=== PATIENT | female | born 1990 | race Caucasian/White ===

== ENCOUNTER → 2020-04-07 10:34 | Outpatient (CLI) | payer BC, SELFPAY | PROVIDERS: PCP Family Medicine; Visit Provider Obstetrics & Gynecology | DX: Z03.818 Encounter for observation for suspected exposure to other biological agents ruled out (principal) | CPT/HCPCS: 87635; U0003 ==

== ENCOUNTER 2020-04-12 07:05 | Inpatient (IN) | payer BC, SELFPAY ==
[2020-04-12] VITALS (21 sets, daily range): BP systolic 116–142; BP diastolic 58–84; PULSE 60–96; RESP 16; TEMP 36.9–37.3; O2SAT 99; BMI 31.5
[2020-04-12] MEDS: Lactated Ringers 1,000 ML 50 ML IV (07:50)
[2020-04-12 08:08] LABS: Absolute Lymphocyte Count 1.25 X10^3/uL (0.83-4.51); Basophil# 0.07 X10^3/uL; Basophil% 0.8 % (0-1); Eosinophils% 2.4 % (0-5); Hematocrit 37.8 % (37-47); Hemoglobin 12.8 g/dL (12.0-15.0); Lymphocyte # 1.25 X10^3/ul (4.0); Lymphocyte % 15.1 % (19-41); Mean Corp Hgb Conc 33.9 g/dL (32-36); Mean Corpuscular Hgb 30.4 pg (27.0-32.0); Mean Corpuscular Volume 89.8 fL (81-99); Mean Platelet Vol. 11.1 fl (6.2-12.0); Monocyte# 0.66 X10^3/uL; NRBC Flagged by Analyzer 0 % (0-5); Neutrophil # 6.03 X10^3/uL (2.7-7.7); Platelet Count 200 K/mm3 (150-450); RBC Distribution Width CV 12.9 % (11.6-14.6); RBC Distribution Width SD 42.4 fl (35.1-43.9); Red Blood Count 4.21 M/mm3 (4.2-5.4); White Blood Count 8.3 K/mm3 (4.4-11.0)
--- NOTE | 2020-04-12 08:45 | PCM.HP.OB ---
- Problem List (1) 41 weeks gestation of Status: Acute (2) Encounter for induction of labor Status: Acute History Date of Admission: 04/12/20 Final WILDA: 04/05/20 Gestational age: 41 Weeks and 0 Days History of this : This is a 29 year-old, G3 P 1103 at 41 weeks gestational age for induction of labor. Denies any loss of fluid or vaginal bleeding. Positive movement and positive contractions. uncomplicated. Allergies bee pollen Allergy (Verified 04/12/20 07:45) Hives blue dye Allergy (Verified 04/12/20 07:46) Hives NSAIDS (Non-Steroidal Anti-Inflamma Allergy (Verified 04/12/20 07:45) Anaphylaxis Home Medications: Home Medications Ascorbic Acid [Vitamin C] 500 mg PO 04/12/20 Pnv No.95/Ferrous Fum/Folic AC [ Caplet] 1 ea PO 04/12/20 Smoking Status: Never smoker Number of Fetus(es): 1 NST - FHR Rate Baby A Baseline: 135 Variability:: Moderate Accelerations:: 15 x 15 Decelerations:: None NST Reactive:: Yes FHR Category:: Category I Uterine Activity:: occasional History Past Pregnancies: Past Pregnancies Delivery Date Name GA/ Weeks Outcome Route Wt Sex Labor Length Anesthesia Delivery Location Provider FOB Labs: B+ Rubella - immune HB- neg HC- neg RPR- NR HIV- NR GBS- negative COVID-19 unknown Expected Delivery Method: Spontaneous Vaginal Review of Systems Constitutional: Denies: Anorexia, Chills, Fever Eyes: Denies: Blurred vision HEENT: Denies: Head Aches Cardiovascular: Denies: Chest Pain Respiratory: Denies: Cough, Shortness of Breath Gastrointestinal: Denies: Abdominal Pain Genitourinary: Denies: Dysuria Neurological: Denies: Headaches Physical Exam Vitals: Vital Signs Pulse BP 93 127/83 H 04/12/20 07:27 04/12/20 07:27 General: Alert, Oriented x3, Cooperative HEENT: Atraumatic Cardiovascular: Regular rate Lungs: Normal air movement Abdomen: Soft, Non Tender, Gravid Neurological: Cranial nerves II-XII grossly intact Estimated gestational size: Appropriate for gestational size Presentation: Cephalic Cervix Dilation (cm): 4 Station: -2 Effacement (%): 70 Assessment/Plan All Active Problems 41 weeks gestation of (Acute) Encounter for induction of labor (Acute) This is a 29 year-old, G [3], P [3], at 41.0 weeks gestational age for induction of labor Admit to labor and delivery Routine labs IV fluids per protocol GBS negative NST - reactive Category 1 tracing AROM- clear fluid Nipple stimulation to stimulate contractions Intermittent monitoring Anticipate Dr. Kimball aware and is collaborating physician
--- NOTE | 2020-04-12 12:59 | PN.OBGYN_ITS ---
Patient Problems: Active and Suspected Problems 41 weeks gestation of (Acute) Encounter for induction of labor (Acute) Subjective: Patient seen at bedside. Feeling good. Denies any pain. Feeling contractions with nipple stimulation but stop once she stops stimulating. - Physical Exam Vitals/I&O's: Vital Signs Pulse BP 83 135/84 H 04/12/20 12:56 04/12/20 12:56 Weight: 220 lb Body Mass Index (BMI) 31.5 Intake and Output for Last 24 Hours 04/10/20 04/11/20 04/12/20 23:59 23:59 23:59 Intake Total 210.83 / 210.83 Output Total 300 / 300 Balance -89.17 / -89.17 General: Alert HEENT: Atraumatic Neck: Supple Lungs: Normal air movement Cardiovascular: Regular rate Abdomen: Soft, Non Tender, Gravid Skin: No rashes Neurological: Cranial nerves II-XII grossly intact Psych/Mental Status: Normal Affect Laboratory Results 04/12/20 07:50: WBC 8.3, RBC 4.21, Hgb 12.8, Hct 37.8, MCV 89.8, MCH 30.4, MCHC 33.9, RDW Std Deviation 42.4, RDW Coeff of Rubén 12.9, Plt Count 200, MPV 11.1, Immature Gran % (Auto) 0.700, Neut % (Auto) 73.0 H, Lymph % (Auto) 15.1 L, [place] % (Auto) 8.0, Eos % (Auto) 2.4, Baso % (Auto) 0.8, Absolute Neuts (auto) 6.0, Absolute Lymphs (auto) 1.25, Nucleated RBC % 0 04/12/20 07:50: Blood Type B POSITIVE, Antibody Screen NEGATIVE Current Medications Acetaminophen (Acetaminophen 500 Mg Tablet) 500 - 1,000 mg PO Q6H PRN PRN PRN Reason: Pain Score 1-3 Al Hydroxide/Mg Hydroxide (Mag Hydrox/Al Hydrox/Simeth 30 Ml Udc) 15 - 30 ml PO Q4H PRN PRN PRN Reason: INDIGESTION Citric Acid/Sodium Citrate (Sodium Citrate/Citric Acid 30 Ml Udc) 30 ml PO X1 PRN PRN Reason: Section Fentanyl Citrate (Fentanyl 100 Mcg/2 Ml Ampul) 25 - 50 mcg IV Q2H PRN PRN PRN Reason: Pain Score 4-10 Lactated Ringer's () 500 mls @ 999 mls/hr IV .Q31M PRN PRN Reason: Epidural Lactated Ringer's () 500 mls @ 999 mls/hr IV .Q31M PRN PRN Reason: Corrective Measures Lactated Ringer's () 1,000 mls @ 50 mls/hr IV .Q20H BECKY Last Infusion: 04/12/20 08:03 Dose: 0 mls/hr Documented by: Oxytocin/Sodium Chloride () 30 units in 500 mls @ 2 mls/hr IV .Q250H BECKY Ondansetron HCl (Ondansetron 4 Mg/2 Ml Vial) 4 mg IV Q4H PRN PRN PRN Reason: NAUSEA Prochlorperazine Edisylate (Prochlorperazine 10 Mg/2 Ml Vial) 10 mg IV Q6H PRN PRN PRN Reason: NAUSEA Sodium Chloride (0.9% Saline Lock 10 Ml Syringe) 10 - 40 ml IV X1 PRN PRN Reason: SALINE FLUSH Medical Necessity - Tobacco Use Smoking Status: Never smoker Assessment/Plan All Active Problems 41 weeks gestation of (Acute) Encounter for induction of labor (Acute)
--- NOTE | 2020-04-12 13:03 | PN.OBGYN_ITS ---
Patient Problems: Active and Suspected Problems 41 weeks gestation of (Acute) Encounter for induction of labor (Acute) Subjective: Patient seen at bedside. Denies pain. Having irregular contractions with nipple stimulation. Desires starting pitocin IV at this time to help progress labor. Objective: CE- 4.5/80/-1 - Physical Exam Vitals/I&O's: Vital Signs Pulse BP 83 135/84 H 04/12/20 12:56 04/12/20 12:56 Weight: 220 lb Body Mass Index (BMI) 31.5 Intake and Output for Last 24 Hours 04/10/20 04/11/20 04/12/20 23:59 23:59 23:59 Intake Total 210.83 / 210.83 Output Total 300 / 300 Balance -89.17 / -89.17 General: Alert, Oriented x3 HEENT: Atraumatic Lungs: Normal air movement Cardiovascular: Regular rate Abdomen: Soft, Non Tender, Gravid Skin: No rashes Neurological: Cranial nerves II-XII grossly intact Laboratory Results 04/12/20 07:50: WBC 8.3, RBC 4.21, Hgb 12.8, Hct 37.8, MCV 89.8, MCH 30.4, MCHC 33.9, RDW Std Deviation 42.4, RDW Coeff of Rubén 12.9, Plt Count 200, MPV 11.1, Immature Gran % (Auto) 0.700, Neut % (Auto) 73.0 H, Lymph % (Auto) 15.1 L, [place] % (Auto) 8.0, Eos % (Auto) 2.4, Baso % (Auto) 0.8, Absolute Neuts (auto) 6.0, Absolute Lymphs (auto) 1.25, Nucleated RBC % 0 04/12/20 07:50: Blood Type B POSITIVE, Antibody Screen NEGATIVE Current Medications Acetaminophen (Acetaminophen 500 Mg Tablet) 500 - 1,000 mg PO Q6H PRN PRN PRN Reason: Pain Score 1-3 Al Hydroxide/Mg Hydroxide (Mag Hydrox/Al Hydrox/Simeth 30 Ml Udc) 15 - 30 ml PO Q4H PRN PRN PRN Reason: INDIGESTION Citric Acid/Sodium Citrate (Sodium Citrate/Citric Acid 30 Ml Udc) 30 ml PO X1 PRN PRN Reason: Section Fentanyl Citrate (Fentanyl 100 Mcg/2 Ml Ampul) 25 - 50 mcg IV Q2H PRN PRN PRN Reason: Pain Score 4-10 Lactated Ringer's () 500 mls @ 999 mls/hr IV .Q31M PRN PRN Reason: Epidural Lactated Ringer's () 500 mls @ 999 mls/hr IV .Q31M PRN PRN Reason: Corrective Measures Lactated Ringer's () 1,000 mls @ 50 mls/hr IV .Q20H BECKY Last Infusion: 04/12/20 08:03 Dose: 0 mls/hr Documented by: Oxytocin/Sodium Chloride () 30 units in 500 mls @ 2 mls/hr IV .Q250H BECKY Ondansetron HCl (Ondansetron 4 Mg/2 Ml Vial) 4 mg IV Q4H PRN PRN PRN Reason: NAUSEA Prochlorperazine Edisylate (Prochlorperazine 10 Mg/2 Ml Vial) 10 mg IV Q6H PRN PRN PRN Reason: NAUSEA Sodium Chloride (0.9% Saline Lock 10 Ml Syringe) 10 - 40 ml IV X1 PRN PRN Reason: SALINE FLUSH Medical Necessity - Tobacco Use Smoking Status: Never smoker Assessment/Plan All Active Problems 41 weeks gestation of (Acute) Encounter for induction of labor (Acute) at 41.0 weeks gestation for induction of labor Category 1 tracing NST reactive CE- minimal change- 4.5/80/-1 Start Pitocin IV and titrate per protocol Anticipate
[2020-04-12] MEDS: Oxytocin 30 units/NS 500 ml 30 UNITS/500 ML IV.SOLN IV (13:12)
--- NOTE | 2020-04-12 17:20 | PCM.OPRPT ---
Problem List (1) 41 weeks gestation of Status: Acute (2) Encounter for induction of labor Status: Acute Report of Operation Date of Procedure: 04/12/20 Pre-Operative Diagnosis: Term gestation Post-Operative Diagnosis: Same, live female infant Vaginal Delivery Maternal Presentation: Medically Indicated Induction at 41.0 weeks gestation for induction of labor. Method of Induction: Pitocin, Amniotomy Medical Reason for Induction: Post term Amniotic Membrane Rupture Type: Artificial Rupture of Membrane time: 832 Amniotic Fluid Description: Clear Final WILDA: 04/05/20 - t Gestational age: 41 Weeks and 0 Days Date of Procedure: 04/12/20 Pre-Operative Diagnosis: Term gestation Post-Operative Diagnosis: Same, live female Surgery/ Procedure Performed: Spontaneous Vaginal Delivery Type of Anesthesia: None Description of Procedure: Patient quickly progressed to complete dilation with urge to push. Patient on hands and knees in bed. head delivered with minimal effort followed by anterior shoulder and remainder of infant. Vigorous infant Immediately placed skin to skin with patient. Cord clamped and cut after several minutes and cessation of pulsation. Patient repositioned in bed and remains skin to skin. Patient requesting physiological management of the third stage of labor. Placenta delivered spontaneously and intact without difficulty. Fundus firm at U with minimal bleeding. Vagina and perineum intact after inspection. Infant and bonding with patient. EBL 200 cc, APGARS 9/9. Dr. Kimball notified and updated on patient's status. Presentation: Vertex Placental Delivery Description: Spontaneous Placenta Disposition: [facility] Cord Vessel Description: 3 Vessels Cord Entanglement: None Estimated Blood Loss: 200 A gender: Female (1 minute): 9 (5 minute): 9 Episiotomy Description: None Laceration: None Medications given after delivery: - - Patient requested no pitocin- immediate nipple stimulation and after delivery Complications: None
[2020-04-13] VITALS (9 sets, daily range): BP systolic 110–129; BP diastolic 54–78; PULSE 65–83; RESP 16–18; TEMP 36.5–37; O2SAT 97–99
--- NOTE | 2020-04-13 07:05 | PCM.PN.OB ---
Patient Problems: Active and Suspected Problems 41 weeks gestation of (Acute) Encounter for induction of labor (Acute) Subjective: Patient seen at bedside. Slept well last night. Denies any pain. Ambulating and voiding without difficulty. infant. Desires discharge home today. - Physical Exam Vitals/I&O's: Vital Signs Temp Pulse Resp BP Pulse Ox 97.7 F L 83 16 110/67 99 04/13/20 02:52 04/13/20 02:52 04/13/20 02:52 04/13/20 02:52 04/13/20 02:52 Oxygen Delivery Method Room Air Weight: 220 lb Body Mass Index (BMI) 31.5 Intake and Output for Last 24 Hours 04/11/20 04/12/20 04/13/20 23:59 23:59 23:59 Intake Total 1222.20 / 1222.20 Output Total 1500 / 1500 Balance -277.80 / -277.80 General: Alert, Oriented x3, Cooperative HEENT: Atraumatic Oral: Moist Mucosa Lungs: Normal air movement Cardiovascular: Regular rate Abdomen: Soft, Non Tender Skin: No rashes Neurological: Cranial nerves II-XII grossly intact Psych/Mental Status: Normal Affect, Appropriate Laboratory Results 04/12/20 07:50: WBC 8.3, RBC 4.21, Hgb 12.8, Hct 37.8, MCV 89.8, MCH 30.4, MCHC 33.9, RDW Std Deviation 42.4, RDW Coeff of Rubén 12.9, Plt Count 200, MPV 11.1, Immature Gran % (Auto) 0.700, Neut % (Auto) 73.0 H, Lymph % (Auto) 15.1 L, [place] % (Auto) 8.0, Eos % (Auto) 2.4, Baso % (Auto) 0.8, Absolute Neuts (auto) 6.0, Absolute Lymphs (auto) 1.25, Nucleated RBC % 0 04/12/20 07:50: Blood Type B POSITIVE, Antibody Screen NEGATIVE Current Medications Acetaminophen (Acetaminophen 500 Mg Tablet) 1,000 mg PO Q8H PRN PRN PRN Reason: Pain Score 1-10 Bisacodyl (Bisacodyl 10 Mg Suppository) 10 mg RECTAL UD PRN PRN Reason: If no BM Dibucaine (Dibucaine 30 Gm Tube) 1 applic TOPICAL TID PRN PRN; Protocol PRN Reason: Discomfort Hydrocortisone (Hydrocortisone 2.5% Crm) 1 applic TOPICAL TID PRN PRN; Protocol PRN Reason: Discomfort Methylergonovine Maleate (Methylergonovine 0.2 Mg/Ml Ampul) 0.2 mg IM X1 PRN PRN Reason: Excess bleeding/uterine atony Ondansetron HCl (Ondansetron 4 Mg/2 Ml Vial) 4 mg IV Q4H PRN PRN PRN Reason: Nausea Senna/Docusate Sodium (Senna/Docusate Sodium 1 Tablet) 1 - 2 tablet PO DAILY PRN PRN PRN Reason: Constipation Simethicone (Simethicone 80 Mg Tablet) 80 mg PO PCHS PRN PRN Reason: Indigestion/Stomach pain Sodium Chloride (0.9% Saline Lock 10 Ml Syringe) 5 - 15 ml IV UD PRN PRN Reason: SALINE FLUSH Medical Necessity - Tobacco Use Smoking Status: Never smoker Assessment/Plan All Active Problems 41 weeks gestation of (Acute) Encounter for induction of labor (Acute) A/P PPD #1 - intact Routine care support Discharge home later today
--- NOTE | 2020-04-13 07:08 | DCINST_ITS ---
Discharge Diet: No Restrictions Discharge Activity: Return to Normal Activity, No Restrictions May resume sexual activity in: 6-8 weeks Weight Bearing Status: Weight bearing as tolerated Additional Instructions: If you experience any of the following, contact your healthcare provider. * Bleeding that soaks a pad every hour for 2 hours * Fever 100.4 or higher * Unrelieved incision or abdominal pain * Swelling, redness, discharge or bleeding from your incision or episiotomy site * Your incision begins to separate * Problems urinating (including inability to urinate or burning while urinating). * Visual changes * Severe headache * Flu-like symptoms * Pain or redness in one of both of your breasts * Pain, warmth, tenderness or swelling in your legs, especially the calf area * Frequent nausea and vomiting * Symptoms of depression or anxiety If you experience any of the following, call 911 or go to the nearest Emergency Room. * Chest pain * Problems breathing * Seizure activity * Partial or complete paralysis of a body part, slurred speech, weakness or drooping of the face, or a sudden inability to walk or hold your balance Allergies/Adverse Reactions: Allergies bee pollen Allergy (Verified 04/12/20 07:45) Hives blue dye Allergy (Verified 04/12/20 07:46) Hives NSAIDS (Non-Steroidal Anti-Inflamma Allergy (Verified 04/12/20 07:45) Anaphylaxis Medications to take at Discharge Ascorbic Acid [Vitamin C] 500 mg PO 04/12/20 Pnv No.95/Ferrous Fum/Folic AC [ Caplet] 1 ea PO 04/12/20 When: 2 weeks virtual visit/ 6 week in office Primary Care Physician: Brea Foote MD [Primary Care Provider] - Test Results: Test results from this visit will be discussed in further detail at your follow- up appointment, if applicable. Proposed Discharge Date: 04/13/20
--- NOTE | 2020-04-13 07:08 | PCM.DCVAG ---
Discharge Diet: No Restrictions Discharge Activity: Return to Normal Activity, No Restrictions May resume sexual activity in: 6-8 weeks Weight Bearing Status: Weight bearing as tolerated Additional Instructions: If you experience any of the following, contact your healthcare provider. Bleeding that soaks a pad every hour for 2 hours Fever 100.4 or higher Unrelieved incision or abdominal pain Swelling, redness, discharge or bleeding from your incision or episiotomy site Your incision begins to separate Problems urinating (including inability to urinate or burning while urinating). Visual changes Severe headache Flu-like symptoms Pain or redness in one of both of your breasts Pain, warmth, tenderness or swelling in your legs, especially the calf area Frequent nausea and vomiting Symptoms of depression or anxiety If you experience any of the following, call 911 or go to the nearest Emergency Room. Chest pain Problems breathing Seizure activity Partial or complete paralysis of a body part, slurred speech, weakness or drooping of the face, or a sudden inability to walk or hold your balance Allergies/Adverse Reactions: Allergies bee pollen Allergy (Verified 04/12/20 07:45) Hives blue dye Allergy (Verified 04/12/20 07:46) Hives NSAIDS (Non-Steroidal Anti-Inflamma Allergy (Verified 04/12/20 07:45) Anaphylaxis Medications to take at Discharge Ascorbic Acid [Vitamin C] 500 mg PO 04/12/20 Pnv No.95/Ferrous Fum/Folic AC [ Caplet] 1 ea PO 04/12/20 When: 2 weeks virtual visit/ 6 week in office Primary Care Physician: Brea Foote MD [Primary Care Provider] - Test Results: Test results from this visit will be discussed in further detail at your follow-up appointment, if applicable. Proposed Discharge Date: 04/13/20
== END 2020-04-13 18:25 | disposition home or self-care (01) | DRG 807 ==
PROVIDERS: Obstetrics & Gynecology; Admitting Provider Advanced Practice Midwife; PCP Family Medicine; Visit Provider Advanced Practice Midwife
DX: O48.0 Post-term pregnancy (principal); Z37.0 Single live birth; Z3A.41 41 weeks gestation of pregnancy
CPT/HCPCS: 59025; 59050; 85025; 86850; 86900; 86901; 99218; J7120; G0378